=== PATIENT | female | born 1985 | race Caucasian/White ===

== ENCOUNTER 2017-06-11 09:16 | Inpatient (IN) | payer MEDICAID ==
[~2017-06-11] VITALS: Ht 167.6 cm; Wt 55.8 kg
[2017-06-11 09:55] LABS: BASOPHILS # (AUTO) 0.04 K/uL (0.00-0.20); BASOPHILS % (AUTO) 0.5 % (0.0-2.0); EOSINOPHILS # (AUTO) 0.03 K/uL (0.00-0.70); EOSINOPHILS % (AUTO) 0.38 % (1.0-6.0); HEMATOCRIT 41.4 % (36-46); HEMOGLOBIN 14.2 g/dL (12.0-16.0); LYMPHOCYTES % (AUTO) 11.8 % (22.0-44.0); MEAN CORPUSCULAR HEMOGLOBIN 32.3 pg (26.0-34.0); MEAN CORPUSCULAR HGB CONC 34.2 G/dL (31.0-37.0); MEAN CORPUSCULAR VOLUME 94 fL (80-100); MONOCYTES # (AUTO) 0.3 K/uL (0.1-1.0); NEUTROPHILS # (AUTO) 6.9 K/uL (1.8-7.7); NEUTROPHILS % (AUTO) 83.4 % (40.0-70.0); PLATELET COUNT (AUTO) 309 K/uL (150-450); RED BLOOD CELL COUNT(AUTO) 4.39 MIL/uL (4.00-5.20); RED CELL DISTRIBUTION WIDTH 12.6 % (11.5-14.5); WHITE BLOOD COUNT (AUTO) 8.3 K/uL (4.5-11.0)
[2017-06-11 10:15] LABS: ALANINE AMINOTRANSFERASE 23 U/L (12-78); ALBUMIN 4.5 g/dL (3.4-5.0); ANION GAP 9 mmol/L (8-16); ASPARTATE AMINOTRANSFERASE 21 U/L (15-37); BILIRUBIN,TOTAL 0.5 mg/dL (0.1-1.0); CALCIUM, TOTAL 9.3 mg/dL (8.8-10.5); CARBON DIOXIDE 25 mmol/L (22-29); CHLORIDE 101 mmol/L (98-107); CREATININE 0.91 mg/dL (0.60-1.30); GLOMERULAR FILTR. RATE CALC > 60 mL/min (>60); SODIUM SERUM 135 mmol/L (136-145); TOTAL PROTEIN, SERUM 7.7 g/dL (6.4-8.2); UREA NITROGEN, BLOOD 6 mg/dL (7-18)
[2017-06-11 10:22] LABS: POTASSIUM 2.9 mmol/L (3.5-5.1)
[2017-06-11] MEDS ORDERED: POTASSIUM CHLORIDE 20 MEQ ER TABLET PO ONE (10:30)
[2017-06-11 17:07] VITALS: BP 138/90
[2017-06-11] MEDS: LORazepam 2 MG TABLET PO PRN (17:46)
[2017-06-12 05:12] VITALS: BP 119/83
[2017-06-12 08:42] VITALS: BP 113/59
[2017-06-12] MEDS: RisperiDONE 0.5 MG TABLET PO SCH ×2 (09:25→20:18)
[2017-06-12] MEDS ORDERED: POTASSIUM CHLORIDE 20 MEQ ER TABLET PO ONE (10:45)
[2017-06-12] MEDS: HALOPERIDOL 5 MG TABLET PO PRN (11:01)
[2017-06-12 17:32] VITALS: BP 120/78
[2017-06-12] MEDS: ZOLPIDEM TARTRATE 10 MG TABLET PO PRN (21:04)
[2017-06-13 06:53] VITALS: BP 101/61
[2017-06-13 08:54] LABS: CHOL/HDL RATIO 2.5 (3.9-5.7); POTASSIUM 4.3 mmol/L (3.5-5.1); THYROID STIMULATING HORMONE 0.34 uIU/mL (0.36-3.74)
[2017-06-13] MEDS: RisperiDONE 0.5 MG TABLET PO SCH ×2 (09:09→20:27)
[2017-06-13 09:15] VITALS: BP 104/68
[2017-06-13 16:32] VITALS: BP 107/79
[2017-06-14 07:13] VITALS: BP 110/62
[2017-06-14] MEDS: RisperiDONE 0.5 MG TABLET PO SCH ×2 (08:21→21:35)
[2017-06-14] MEDS: LORazepam 2 MG TABLET PO PRN ×2 (08:21→17:55)
[2017-06-14] MEDS: HALOPERIDOL 5 MG TABLET PO PRN (08:21)
[2017-06-14 08:25] VITALS: BP 108/59
[2017-06-14 16:23] VITALS: BP 109/63
[2017-06-14] MEDS: ZOLPIDEM TARTRATE 10 MG TABLET PO PRN (21:36)
[2017-06-15 06:55] VITALS: BP 100/61
[2017-06-15] MEDS: RisperiDONE 0.5 MG TABLET PO SCH (08:19)
[2017-06-15 08:47] VITALS: BP 108/65
[2017-06-15] MEDS ORDERED: RISP.5 PO (09:30)
== END 2017-06-15 14:44 | disposition home or self-care (01) | DRG 750 ==
LOC: EMS 09:18 → B3A 12:35
DX: F25.0 Schizoaffective disorder, bipolar type (principal); F15.90 Other stimulant use, unspecified, uncomplicated
CPT/HCPCS: 84132; 84436; 84439; 84443; 99285; G0480